=== PATIENT | male | born 1980 | race Caucasian/White ===

== ENCOUNTER → 2020-09-17 | Outpatient (CLI) | payer OTHER ==
[~2020-09-17] MED LIST: IOHEXOL 240 MG/ML 50ML VIAL. ONE; IOHEXOL 300 MG/ML 75 ML VIAL. IV ONE
--- NOTE | 2020-09-17 09:53 | RAD ---
EXAM: CT ABDOMEN/PELVIS WITH CONTRAST. HISTORY: Right inguinal pain. TECHNIQUE: Computed tomography of the abdomen and pelvis was performed after the intravenous administ ration of iodinated contrast. One or more of the following individualized dose reduction techniques w ere utilized for this examination: 1. Automated exposure control. 2. Adjustment of the mA and/or kV according to patient size. 3. Use of iterative reconstruction technique. COMPARISON: None. FINDINGS: Lung windows through the visualized portions of the bases reveal no abnormality. Bone windo ws reveal no suspicious lesions. The tip of the appendix is above the limits of normal caliber at 8 mm, but it does not appear inflame d. This lies along the right internal inguinal ring. No hernia or other inguinal abnormality is ident ified. There is no small bowel obstruction. There are no pathologically enlarged lymph nodes. There are no r enal or ureteral calculi. The kidneys, gallbladder, pancreas, adrenal glands and spleen are unremarka ble. A tiny hypoattenuating lesion within the dome of the liver is likely a benign cyst or hemangioma . IMPRESSION: 1. The tip of the appendix is above the limits of normal caliber, but it does not appear inflamed. Co rrelate with other data to differentiate early appendicitis from a variant of normal. Electronically signed by: Marisela Rivero MD (09/17/2020 9:51 AM) [id number]
== END ==
LOC: CT 07:45
PROVIDERS: ATTEND Internal Medicine
DX: K37 Unspecified appendicitis (principal)
CPT/HCPCS: 74177; Q9967